=== PATIENT | male | born 1995 | race Caucasian/White ===

== ENCOUNTER → 2017-01-10 | Day surgery (SDC) | payer OTHER ==
[~2017-01-10] VITALS: Ht 175.3 cm; Wt 73.9 kg
--- NOTE | 2017-01-13 14:18 | Operative Report ---
Operative/Inv Procedure Report Surgery Date: 01/10/17 Name of Procedure: Excision of pilonidal cyst Pre-Operative Diagnosis: Pilonidal cyst Post-Operative Diagnosis: Same Estimated Blood Loss: scant Surgeon/Dried Fruit Washer: NAOMY MARTINEZ,LAURITA Montague Anesthesia: general endotracheal tube Operative/Procedure Note Note: Patient was placed on the OR table supine, after successful induction of general anesthesia pt was turned into prone, and then the buttocks were taped clipped prepped and draped in the usual sterile fashion. There was no significant abscess cavity just firm cyst deep to the crypts, so we planned 1 incision including/overlying this, upper portion of gluteal cleft that contains these crypts, about three cm long. This midline elliptical incision was drawn and then injected with local anesthetic and then made with a 15 blade. Once through the dermis, the excision proceeded slightly bilaterally with cautery and deep to the fascia covering the coccyx, excising this scarred and granulation tissue in one piece. After this was removed the space was inspected for hemostasis especially at the dermis, with cautery and then reapproximated in layers with multiple interrupted 3-0 Vicryl sutures subdermally followed by 4-0 Biosyn for the skin itself, but at the top we left it open and wicked it with a thinned out corner of the gauze, followed by bacitracin and fluff and gauze. EBL minimal lap and sponge counts correct wound expectancy contaminated IV fluids crystalloid complications none patient tolerated the procedure well was awakened extubated and returned to the recovery room in satisfactory condition.
== END ==
LOC: STS 03:06
DX: L05.91 Pilonidal cyst without abscess (principal)
CPT/HCPCS: 88304; C9399; J2250